=== PATIENT | female | born 1975 | race Caucasian/White ===

== ENCOUNTER → 2019-07-24 15:03 | Outpatient (CLI) | payer OTHER, SELFPAY ==
--- NOTE | ~2019-07-24 | MM_ITS ---
EXAMINATION: MM screening jaya BI w tino HISTORY: Screening mammogram TECHNIQUE: Craniocaudal and mediolateral oblique 3-D tomosynthesis images were obtained and synthetic 2-D images were generated. CAD analysis was submitted and interpreted. COMPARISON: No prior mammogram is available for comparison at this institution. BREAST PARENCHYMAL COMPOSITION: The breasts are almost entirely fatty. FINDINGS: There is no evidence of suspicious mass, calcification, or architectural distortion to sugg est malignancy in either breast. There has been no suspicious interval change. IMPRESSION: 1. No mammographic evidence of malignancy. 2. Recommend routine screening mammography in one year. BI-RADS Category 1: Negative Reviewed, dictated and finalized at location A. DCAST TECHNICIAN
== END ==
PROVIDERS: PCP Family Medicine; Visit Provider Nurse Practitioner
DX: Z12.31 Encounter for screening mammogram for malignant neoplasm of breast (principal)
CPT/HCPCS: 77063; 77067

== ENCOUNTER 2020-05-16 08:49 | Outpatient (CLI) | payer OTHER, SELFPAY ==
[2020-05-16 09:06] LABS: Basophils Absolute Auto 0.04 K/mm3 (0.00-0.10); Basophils Percent Auto 0.9 % (0.0-1.0); Eosinophils Absolute Auto 0.15 K/mm3 (0.02-0.50); Eosinophils Percent Auto 3.5 % (1.0-6.0); Hematocrit 39.9 % (35.0-49.0); Immature Granulocyte Absolute 0.02 K/mm3 (0.00-0.00); Immature Granulocyte Percent A 0.5 % (0.0-0.0); Lymphocytes Absolute Auto 0.96 K/mm3 (1.10-4.50); Lymphocytes Percent Auto 22.2 % (18.0-42.0); Mean Corpuscular HGB Conc 32.6 g/dL (32.0-36.0); Mean Corpuscular Hemoglobin 28.5 pg (27.0-31.0); Mean Corpuscular Volume 87.5 fL (78.0-102.0); Mean Platelet Volume 9.4 fl (9.2-11.8); Monocytes Absolute Auto 0.27 K/mm3 (0.10-0.90); Monocytes Percent Auto 6.3 % (2.0-11.0); Neutrophils Absolute Auto 2.9 K/mm3 (1.7-7.2); Neutrophils Percent Auto 66.6 % (50.0-70.0); Platelet Count Result 203 K/mm3 (150-420); Red Blood Count 4.56 M/mm3 (4.20-5.40); Red Cell Distribution Width 12.7 % (11.6-14.4); White Blood Count 4.3 K/mm3 (4.8-10.8)
[2020-05-16 09:54] LABS: Alanine Aminotransferase 19 U/L (14-59); Albumin Level 4.2 g/dL (3.4-5.0); Alkaline Phosphatase 74 U/L (46-116); Anion Gap 8 mmol/L (8-16); Aspartate Amino Transferase 11 U/L (15-37); Bilirubin,Total 0.7 mg/dL (0.00-1.00); Blood Urea Nitrogen 14 mg/dL (7-18); Calcium 9.3 mg/dL (8.5-10.1); Carbon Dioxide 28 mmol/L (21-32); Chloride 106 mmol/L (98-108); Cholesterol 199 mg/dL (0-200); Estimated Glomerular Filt Rate > 60; Glucose 86 mg/dL (70-99); HDL Direct 68 mg/dL (40-60); LDL Cholesterol Calculated 121 mg/dL (<130); Osmolality Calculated 293 mOsm/kg (285-295); Potassium 4.7 mmol/L (3.5-5.1); Sodium 142 mmol/L (136-145); Thyroid Stimulating Hormone 2.27 uIU/mL (0.36-3.74); Total Protein 7.4 g/dL (6.4-8.2); Triglycerides 50 mg/dL (0-150)
[2020-05-21 11:17] LABS: Vitamin D 25 Hydroxy 63 ng/mL (30-100)
== END 2020-05-16 08:50 | disposition home or self-care (01) ==
PROVIDERS: PCP Family Medicine; Visit Provider Family Medicine
DX: E55.9 Vitamin D deficiency, unspecified (principal); I10 Essential (primary) hypertension
CPT/HCPCS: 36415; 80053; 80061; 82306; 84443; 85025

== ENCOUNTER → 2020-10-21 13:43 | Outpatient (CLI) | payer OTHER, SELFPAY ==
--- NOTE | ~2020-10-21 | MM_ITS ---
EXAMINATION: MM screening [facility] BI w tino HISTORY: Screening mammogram TECHNIQUE: Craniocaudal and mediolateral oblique 3-D tomosynthesis images were obtained and synthetic 2-D images were generated. CAD analysis was submitted and interpreted. COMPARISON: 07/24/2019, 07/18/2018, 07/01/2017 BREAST PARENCHYMAL COMPOSITION: There are scattered areas of fibroglandular density. FINDINGS: There is no evidence of suspicious mass, calcification, or architectural distortion to sugg est malignancy in either breast. There has been no suspicious interval change. IMPRESSION: 1. No mammographic evidence of malignancy. 2. Recommend routine screening mammography in one year. BI-RADS Category 1: Negative Reviewed, dictated and finalized at location A.
== END ==
PROVIDERS: Visit Provider Nurse Practitioner
DX: Z12.31 Encounter for screening mammogram for malignant neoplasm of breast (principal)
CPT/HCPCS: 77063; 77067

== ENCOUNTER 2021-08-26 08:31 | Outpatient (CLI) | payer OTHER, SELFPAY ==
[2021-08-26 08:44] LABS: Basophils Absolute Auto 0.07 K/mm3 (0.00-0.10); Basophils Percent Auto 1.2 % (0.0-1.0); Eosinophils Absolute Auto 0.16 K/mm3 (0.02-0.50); Eosinophils Percent Auto 2.8 % (1.0-6.0); Hematocrit 41.7 % (35.0-49.0); Hemoglobin 13.8 g/dL (12.0-15.0); Immature Granulocyte Absolute 0.02 K/mm3 (0.00-0.00); Immature Granulocyte Percent A 0.3 % (0.0-0.0); Lymphocytes Absolute Auto 1.34 K/mm3 (1.10-4.50); Lymphocytes Percent Auto 23.4 % (18.0-42.0); Mean Corpuscular HGB Conc 33.1 g/dL (32.0-36.0); Mean Corpuscular Hemoglobin 30.4 pg (27.0-31.0); Mean Corpuscular Volume 91.9 fL (78.0-102.0); Mean Platelet Volume 9.3 fl (9.2-11.8); Monocytes Absolute Auto 0.45 K/mm3 (0.10-0.90); Monocytes Percent Auto 7.9 % (2.0-11.0); Neutrophils Absolute Auto 3.7 K/mm3 (1.7-7.2); Neutrophils Percent Auto 64.4 % (50.0-70.0); Platelet Count Result 250 K/mm3 (150-420); Red Blood Count 4.54 M/mm3 (4.20-5.40); Red Cell Distribution Width 12.1 % (11.6-14.4); White Blood Count 5.7 K/mm3 (4.8-10.8)
[2021-08-26 09:35] LABS: Creatinine Urine 217.16 mg/dL (40-278); MALB Creatinine Ratio 5.9 mg/g (0-30); Microalbumin Urine Random < 13.0 mg/L
[2021-08-26 09:51] LABS: Alanine Aminotransferase 23 U/L (14-59); Albumin Level 3.9 g/dL (3.4-5.0); Alkaline Phosphatase 72 U/L (46-116); Anion Gap 9 mmol/L (8-16); Aspartate Amino Transferase 17 U/L (15-37); Bilirubin,Total 0.5 mg/dL (0.00-1.00); Blood Urea Nitrogen 11 mg/dL (7-18); Calcium 8.6 mg/dL (8.5-10.1); Carbon Dioxide 30 mmol/L (21-32); Chloride 102 mmol/L (98-108); Estimated Glomerular Filt Rate > 60; Glucose 87 mg/dL (70-99); Osmolality Calculated 290 mOsm/kg (285-295); Potassium 4.2 mmol/L (3.5-5.1); Sodium 141 mmol/L (136-145); Thyroid Stimulating Hormone 1.99 uIU/mL (0.36-3.74); Total Protein 6.9 g/dL (6.4-8.2)
[2021-08-26 11:19] LABS: Cholesterol 186 mg/dL (0-200); HDL Direct 66 mg/dL (40-60); LDL Cholesterol Calculated 113 mg/dL (<130); Triglycerides 33 mg/dL (0-150)
[2021-08-29 13:49] LABS: Vitamin D 25 Hydroxy 50 ng/mL (30-100)
== END 2021-08-26 08:32 | disposition home or self-care (01) ==
LOC: CHSLAB 08:35
PROVIDERS: PCP Family Medicine; Visit Provider Nurse Practitioner
DX: E55.9 Vitamin D deficiency, unspecified (principal); I10 Essential (primary) hypertension
CPT/HCPCS: 36415; 80053; 80061; 82043; 82306; 84443; 85025

== ENCOUNTER → 2022-02-10 15:41 | Outpatient (CLI) | payer OTHER, SELFPAY ==
--- NOTE | ~2022-02-10 | MM_ITS ---
EXAMINATION: MM screening [facility] BI w tino HISTORY: Screening mammogram TECHNIQUE: Craniocaudal and mediolateral oblique 3-D tomosynthesis images were obtained and synthetic 2-D images were generated. CAD analysis was submitted and interpreted. COMPARISON: 10/21/2020, 07/24/2019, 07/18/2018 BREAST PARENCHYMAL COMPOSITION: There are scattered areas of fibroglandular density. FINDINGS: RIGHT BREAST: There is no suspicious mass, calcification, or architectural distortion to suggest sadiq gnancy. There has been no significant interval change. LEFT BREAST: There is a possible low-density mass in the posterior third of inner breast approximatel y 13.5 cm from the nipple. IMPRESSION: 1. Possible left breast mass. 2. Additional mammographic views and possible breast ultrasound are recommended. BI-RADS Category 0: Incomplete: Needs additional imaging evaluation. Reviewed, dictated and finalized at location A. IMPRESSION: 1. Possible left breast mass. 2. Additional mammographic views and possible breast ultrasound are recommended . BI-RADS Category 0: Incomplete: Needs additional imaging evaluation.
== END ==
PROVIDERS: PCP Family Medicine; Visit Provider Nurse Practitioner
DX: Z12.31 Encounter for screening mammogram for malignant neoplasm of breast (principal); R92.8 Other abnormal and inconclusive findings on diagnostic imaging of breast
CPT/HCPCS: 77063; 77067

== ENCOUNTER → 2022-03-02 09:16 | Outpatient (CLI) | payer OTHER, SELFPAY ==
--- NOTE | ~2022-03-02 | MMUS_ITS ---
EXAMINATION: MM diagnostic jaya LT w tino, US breast LT limited HISTORY: Left breast mass on screening mammogram TECHNIQUE: Additional 3-D tomosynthesis images of the left breast were performed and synthetic 2-D im ages were generated. CAD analysis was submitted and interpreted. High resolution limited left breast ultrasound was performed. COMPARISON: 02/10/2022, 10/21/2020, 07/24/2019 FINDINGS: MAMMOGRAPHIC FINDINGS: There is a return to baseline fibroglandular appearance with spot compression of the left breast in t he area questioned on screening mammogram. ULTRASOUND: There is no evidence of focal abnormal solid or cystic mass in the vicinity of the mammographic findi ng in question. IMPRESSION: 1. No mammographic or sonographic evidence of malignancy. 2. Recommend routine screening mammography in one year. BI-RADS Category 1: Negative Reviewed, dictated and finalized at location A. IMPRESSION: 1. No mammographic or sonographic evidence of malignancy. 2. Recommend routine screening mammography in one year. BI-RADS Category 1: Negative
== END ==
PROVIDERS: PCP Obstetrics & Gynecology Gynecology; Visit Provider Obstetrics & Gynecology Gynecology
DX: R92.8 Other abnormal and inconclusive findings on diagnostic imaging of breast (principal)
CPT/HCPCS: 76642; 77061; 77065; G0279

== ENCOUNTER 2023-01-06 08:06 | Day surgery (SDC) | payer OTHER, SELFPAY ==
--- NOTE | 2023-01-05 22:05 | P.HP_ITS ---
History of Present Illness History of Present Illness Consent: Risks, benefits, and alternatives have been discussed and questions answered. Patient agrees to proceed with procedure. Chief complaint: Neoplasm Screening Narrative: Jacobo Dumont is a 47 year old female who is referred for colon cancer screening. Review of Systems Review of Systems: All systems reviewed & are unremarkable except as noted in HPI and below [facility] Social History Social History Smoking status: Never smoker Alcohol intake: current Meds Home Medications and Allergies Home Medications Medication Instructions Recorded Confirmed Type losartan 100 1 tablet PO DAILY 11/10/22 01/06/23 History mg-hydrochlorothiazide 12.5 mg tablet omeprazole 40 mg capsule,delayed 40 mg PO DAILY 11/10/22 01/06/23 History release Allergies Allergy/AdvReac Type Severity Reaction Status Date / Time No Known Allergies Allergy Unknown Verified 01/06/23 08:47 Exam Const: General: alert Orientation/consciousness: patient oriented x3 Resp: Auscultation: clear to auscultation bilaterally Cardio: Rhythm: regular rhythm GI: GI Palp: Yes Soft to palpation and No Tenderness to palpation present (GI) Neuro: General: patient oriented x3 Assessment and Plan Assessment and plan (1) Colon cancer screening: Code(s): Z12.11 - Encounter for screening for malignant neoplasm of colon Status: Acute Assessment and Plan: Colonoscopy with possible biopsy or polypectomy or cautery or injection of substances.
--- NOTE | 2023-01-06 08:37 | P.PNAN_ITS ---
Anes - Initial Pre Proc Eval Procedure: Operation Date: 01/06/23 10:00 Proposed Procedures p Screening Colonoscopy - Oc Sullivan MD Date/Time: 01/06/23 08:37 Surgeon: Oc Sullivan MD Pre Op Diagnosis: Neoplasm Screening Patient Data Age: 47 Gender: F Height: 1.7 m Weight: 81.647 kg Allergies Allergy/AdvReac Type Severity Reaction Status Date / Time No Known Allergies Allergy Unknown Verified 01/06/23 08:47 Home Medications Medication Instructions Recorded Confirmed Type losartan 100 1 tablet PO DAILY 11/10/22 01/06/23 History mg-hydrochlorothiazide 12.5 mg tablet omeprazole 40 mg capsule,delayed 40 mg PO DAILY 11/10/22 01/06/23 History release Patient hx anesthesia problems: none Family hx anesthesia problems: none Results Review: All pre-operative results and documents have been reviewed as part of the pre- operative evaluation. [facility] Social History Social History Smoking status: Never smoker Alcohol intake: current Anes - Eval Final PreProcedure Day of Procedure 01/06/23 08:37 Patient weight: overweight Heart: regular rate and rhythm Lungs: clear to auscultation Airway: Mallampati scale class II Neurological: alert and oriented Last oral intake: >/= 8 hours ASA classification: II Emergent: no Anesthetic plan: proceed Anesthesia type and monitoring: general GIVS and standard monitoring Results Review: All pre-operative results and documents have been reviewed as part of the pre- operative evaluation. Informed Consent: The patient's anesthetic plan and its attendant risks and benefits were discussed with the patient/family/POA. Questions were solicited and answers provided to the satisfaction of the patient/family/POA.
[2023-01-06 08:48] VITALS: BP 129/77; PULSE 64; RESP 16; TEMP 36.8; O2SAT 99
[2023-01-06] MEDS: LACTATED RINGERS 1,000 ML 150 ML IV CONT (08:58)
[2023-01-06 09:58] VITALS: BP 106/68; PULSE 74; RESP 16; O2SAT 99
[2023-01-06 10:08] VITALS: BP 115/72; PULSE 76; RESP 18; O2SAT 100
[2023-01-06 10:18] VITALS: BP 108/62; PULSE 67; RESP 18; O2SAT 100
--- NOTE | 2023-01-06 10:55 | WPDANESPN ---
Anes - Prog Note Post-Op Date/Time: 01/06/23 10:55 Cardiovascular status: normal Respiratory status: normal Airway patency: baseline Mental status: baseline Post-Op hydration status: normal Vital Signs: Last Vital Signs Temp 36.8 C 01/06/23 08:48 Pulse 67 01/06/23 10:18 Resp 18 01/06/23 10:18 BP 108/62 01/06/23 10:18 Pulse Ox 100 01/06/23 10:18 O2 Del Method Room Air 01/06/23 10:18 Pain Score (VAS): 0 I/O: Intake & Output 01/05/23 01/06/23 01/06/23 23:59 07:59 15:59 Intake Total 250 Balance 250 Post-procedural complaints: none Patient Feedback: Patient satisfied with anesthetic care. Other Findings: Patient vital signs back to baseline. Patient denies nausea and vomiting. Patient's pain under control. Patient OK for discharge.
== END 2023-01-06 10:28 | disposition home or self-care (01) ==
PROVIDERS: PCP Family Medicine; Visit Provider Internal Medicine Gastroenterology
PROC: 0DJD8ZZ Inspection of Lower Intestinal Tract, Via Natural or Artificial Opening Endoscopic (ICD-10-PCS; CPT 45378; principal; 2023-01-06 10:00)
DX: Z12.11 Encounter for screening for malignant neoplasm of colon (principal); K57.30 Diverticulosis of large intestine without perforation or abscess without bleeding
CPT/HCPCS: 45378

== ENCOUNTER 2023-03-07 07:26 | Outpatient (CLI) | payer OTHER, SELFPAY ==
--- NOTE | ~2023-03-07 | MM_ITS ---
EXAMINATION: MM screening jaya BI w tino HISTORY: Screening mammogram TECHNIQUE: Craniocaudal and mediolateral oblique 3-D tomosynthesis images were obtained and synthetic 2-D images were generated. CAD analysis was submitted and interpreted. COMPARISON: 03/02/2022 diagnostic left mammogram and limited left breast ultrasound 02/10/2022, 10/21/2020, bilateral screening mammogram examinations BREAST PARENCHYMAL COMPOSITION: There are scattered areas of fibroglandular density. FINDINGS: There is no evidence of suspicious mass, calcification, or architectural distortion to sugg est malignancy in either breast. There has been no suspicious interval change. IMPRESSION: 1. No mammographic evidence of malignancy. 2. Recommend routine screening mammography in one year. BI-RADS Category 1: Negative Reviewed, dictated and finalized at location A.
== END 2023-03-07 07:27 | disposition home or self-care (01) ==
LOC: CHSIMG 07:27
PROVIDERS: PCP Family Medicine; Visit Provider Obstetrics & Gynecology Gynecology
DX: Z12.31 Encounter for screening mammogram for malignant neoplasm of breast (principal)
CPT/HCPCS: 77063; 77067

== ENCOUNTER 2023-07-05 08:09 | Emergency (ER) | payer OTHER, SELFPAY ==
[2023-07-05 08:14] VITALS: BP 152/96; PULSE 81; RESP 19; TEMP 36.7; O2SAT 98
--- NOTE | 2023-07-05 08:32 | ED.GENADULT ---
HPI - General Adult General Chief complaint: Head Injury Stated complaint: Fall/headache, neck pain Time Seen by Provider: 07/05/23 08:22 History of Present Illness HPI narrative: 48yo woman presents with headache and nausea onset this morning after a fall yesterday where she slipped on ice, struck back of head on the driveway. Has small occipital hematoma. no LOC. No anticoagulation. No vomiting, numbness, weakness, or visual disturbance. +neck and back stiffness. Related Data Home Medications Medication Instructions Recorded Confirmed losartan 100 1 tablet PO DAILY 11/10/22 07/05/23 mg-hydrochlorothiazide 12.5 mg tablet omeprazole 40 mg capsule,delayed 40 mg PO DAILY 11/10/22 07/05/23 release Allergies Allergy/AdvReac Type Severity Reaction Status Date / Time No Known Allergies Allergy Unknown Verified 07/05/23 08:18 Review of Systems Review of Systems: All systems reviewed & are unremarkable except as noted in HPI and below Constitutional: Constitutional: Denies fever(s) Eyes: Eyes: Denies change in vision ENT: Denies dysphagia and Denies vertigo Cardiovascular: Cardiovascular: Denies chest pain Respiratory: Respiratory: Denies dyspnea Gastrointestinal: Gastrointestinal: Denies abdominal pain PMFSH Social History Social History Smoking status: Never smoker Alcohol intake: current Exam Const: General: healthy appearing and no acute distress Nutritional Appearance: well nourished Orientation/consciousness: patient oriented x3 HENMT: Head: contusion Other: small superficial occipital hematoma Eyes: Conjunctivae: conjunctivae normal Pupils: Equal, round and reactive pupils present EOM: EOMs intact bilaterally Neck: Neck: no meningeal signs Other: supple Resp: Effort & Inspection: normal respiratory effort Cardio: Rate: regular rate GI: Inspection: non-distended Skin: General skin exam: normal color, no jaundice and no pallor Neuro: General: patient oriented x3, moves all extremities, no focal motor deficits and CN's II-XI intact bilaterally Speech: normal speech Gait exam (Neuro): Normal gait present Extrem: General: no clubbing, cyanosis or edema Course Vital Signs Vital signs: Vital Signs Temperature 36.7 C 07/05/23 08:14 Pulse Rate 81 07/05/23 08:14 Respiratory Rate 19 01/23/24 08:14 Blood Pressure 152/96 H 07/05/23 08:14 Pulse Oximetry 98 07/05/23 08:14 Oxygen Delivery Room Air 07/05/23 08:14 Temperature 36.7 C 07/05/23 08:14 Pulse Rate 81 07/05/23 08:14 Respiratory Rate 19 07/05/23 08:14 Blood Pressure 152/96 H 07/05/23 08:14 Pulse Oximetry 98 07/05/23 08:14 Oxygen Delivery Room Air 07/05/23 08:14 Medical Decision Making MDM Narrative Medical decision making narrative: ground level fall minor head trauma, no LOC DDx likely concussion, contusion, muscle spasm, no evidence of fracture or internal hemorrhage Vital Signs Vital Signs: Vital Signs Temperature 36.7 C 07/05/23 08:14 Pulse Rate 81 07/05/23 08:14 Respiratory Rate 19 07/05/23 08:14 Blood Pressure 152/96 H 07/05/23 08:14 Pulse Oximetry 98 07/05/23 08:14 Oxygen Delivery Room Air 07/05/23 08:14 Temperature 36.7 C 07/05/23 08:14 Pulse Rate 81 07/05/23 08:14 Respiratory Rate 19 07/05/23 08:14 Blood Pressure 152/96 H 07/05/23 08:14 Pulse Oximetry 98 07/05/23 08:14 Oxygen Delivery Room Air 07/05/23 08:14 Discharge Plan Discharge Clinical Impression: Concussion without loss of consciousness, initial encounter, Ground-level fall Traumatic hematoma of scalp Qualifiers: Encounter type: initial encounter Qualified Code(s): S00.03XA - Contusion of scalp, initial encounter Patient Disposition: Home, Self-Care Condition: Improved Instructions: Concussion (ED) Additional Instructions: A concussion is a mild he
[2023-07-05] MEDS: methocarbamoL 500 MG TABLET 1000 MG PO (08:42)
[2023-07-05] MEDS: ONDANSETRON HCL ODT 4 MG TABLET 8 MG PO (08:43)
== END 2023-07-05 08:52 | disposition home or self-care (01) ==
LOC: CHSED 08:45
PROVIDERS: Emergency Provider Emergency Medicine; PCP Family Medicine
DX: S06.0X0A Concussion without loss of consciousness, initial encounter (principal); S00.03XA Contusion of scalp, initial encounter; Z79.899 Other long term (current) drug therapy; W00.0XXA Fall on same level due to ice and snow, initial encounter
CPT/HCPCS: 99283; A9270

== ENCOUNTER → 2023-07-20 11:14 | Outpatient (CLI) | payer OTHER, SELFPAY ==
--- NOTE | ~2023-07-20 | MR_ITS ---
EXAMINATION: MR brain/brain stem wo con DATE: 07/20/2023 12:03 INDICATION: Concussion without loss of consciousness TECHNIQUE: Magnetic resonance imaging (MRI) of the brain and brainstem was performed without intraven ous contrast. Sequences included sagittal and axial T1-weighted SE, axial diffusion-weighted FS SE, a xial 3D SWAN, axial T2-weighted FLAIR, and axial T2-weighted FSE. Apparent diffusion coefficient (ADC ) maps were created. COMPARISON: None. FINDINGS: There are no areas of restricted diffusion to suggest acute infarction. No intracranial hemorrhage or abnormal intracranial mass lesion. There are no intraparenchymal signal abnormalities seen on the ot her pulse sequences. The ventricles are symmetric and normal in size. There are no abnormal extra-axi al fluid collections. Flow voids are seen in the cerebral arteries on the T2-weighted sequences consi stent with their expected patency. Visualized orbits and soft tissues are unremarkable. IMPRESSION: 1. Normal brain MR Reviewed, dictated and finalized at location A. AZZO WORKER HELPER IMPRESSION: 1. Normal brain MR
== END ==
PROVIDERS: PCP Family Medicine; Visit Provider Family Medicine
DX: S06.0X0D Concussion without loss of consciousness, subsequent encounter (principal); X58.XXXD Exposure to other specified factors, subsequent encounter
CPT/HCPCS: 70551

== ENCOUNTER 2023-07-25 13:58 | Outpatient (RCR) | payer OTHER, SELFPAY ==
--- NOTE | 2023-07-25 14:59 | PTOPEVAL1 ---
Assessment and note entered by Get Hobson Evaluation Information Assessment Status Evaluation Diagnosis post concussion syndrome Onset 07/04/23 Subjective Information Pt. reports she slipped on the ice on 07/04/23. She struck the back of her head. Started with pain in the head and neck and she began feeling dizziness and nausea the next day. She went to the ER that day. She reports she can only read for about 10 minutes. 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 She has recently returned to work, but does notice headaches with work related activities. 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 She enjoys watching her daughters sports but the lights at the gym give her headaches and dizziness. She reports that while driving she will have dizziness with turning her head. She reports that her goal is to reduce her dizziness. Reported Pain Level Pain Score 8,8: Self Report Assessment PT Clinical Summary Pt. is a 48 year old female who enters the clinic due to developed dizziness after a fall resulting in concussion. While pt. has numerous post concussion symptoms, she did present with positive findings for left sided BPPV on this date. Pt. responds well to Federico Maneuver with no noted nystagmus following the 3rd rep of the Federico. Continued skilled PT is indicated in order to improve symptoms of dizziness and transition into Hole 19 and Bizo activities for desensitization to difficult head and eye movements. Consider transitioning treatment to address neck pain consistent with whiplash syndrome. Plan of Care Interventions Electrical Stimulation,Hot Pack/Cold Pack,Manual Therapy,Patient/Caregiver Educati,Therapeutic Activities,Therapeutic Exercise Other Interventions cannalith repositioning PT Services Indicated Yes Treatment Frequency and 1x/week x 6 visits Duration These treatments will address the objective and functional deficits as defined above. The patient will be advanced safely and appropriately in order for the patient to progress towards his/her prior level of function. Additional exercises will be introduced and as well as a comprehensive home exercise program upon discharge, if needed, ?to ensure carryover of functional gains achieved in the clinic. This treatment plan has been reviewed and agreement upon by the patient.
--- NOTE | 2023-07-25 15:03 | OPREHPOC ---
Outpatient Therapy Plan of Care This is a Multidisciplinary Plan of Care that may contain components documented by all disciplines (PT, OT, and ST.) PT Problem 1 PT Problem #1 Knowledge Deficit PT Goal 1 Goal Independent with performance of home Federico Maneuver. Target Visit 2 PT Problem 2 PT Problem #2 Impaired Vestibular Syste PT Goal 1 Goal Pt. will present with less than 20% limitation on the DHI. Target Visit 3 PT Goal 2 Goal Pt. will report no episodes of dizziness over a 1 week period. Target Visit 3 PT Problem 3 PT Problem #3 Impaired Range of Motion PT Goal 1 Goal Pt. will demonstrate no restriction in lateral flexion (45 degrees bilateral), and cervical rotation (85 degrees bilateral) Target Visit 6
--- NOTE | 2023-08-25 16:50 | OPREHPOC ---
Outpatient Therapy Plan of Care This is a Multidisciplinary Plan of Care that may contain components documented by all disciplines (PT, OT, and ST.) PT Problem 1 PT Problem #1 Knowledge Deficit PT Goal 1 Goal Independent with performance of home Federico Maneuver. Target Visit 2 Progress Met PT Problem 2 PT Problem #2 Impaired Vestibular Syste PT Goal 1 Goal Pt. will present with less than 20% limitation on the DHI. Target Visit 3 Progress Partially Met PT Goal 2 Goal Pt. will report no episodes of dizziness over a 1 week period. Target Visit 3 Progress Met PT Problem 3 PT Problem #3 Impaired Range of Motion PT Goal 1 Goal Pt. will demonstrate no restriction in lateral flexion (45 degrees bilateral), and cervical rotation (85 degrees bilateral) Target Visit 6 Progress Met
--- NOTE | 2023-08-25 16:51 | PTOPDC ---
Assessment and note entered by JT File, PT Evaluation Information Assessment Status Discharge Diagnosis post concussion syndrome Onset 07/04/23 Subjective Information patient reports she is better. she reports she tolerates light better, noise better, and being around people better. she reports she has improved in her driving, and only gets slight symptoms with exit/on ramps and looking in the rearview mirror. she reports she has more energy, and tolerates being on the computer longer. she reports she no longer gets dizzy, but does have a few headaches now and then. patient reports she believes she is ready to DC therapy. Reported Pain Level Pain Score 0,0: Self Report Assessment PT Clinical Summary mrs. england presents to skilled PT services for her 4th skilled PT visit. she presents today with having met nearly all goals for skilled PT, except DHI score. however, her DHI score is right at the cutoff for her goal. she no longer has dizziness according to her subjective reports, and has only head aches from time to time. patient was given updated instructions to increase activity at home, and how to progress her balance exercises. she will be DC'd from skilled PT today. Plan of Care PT Services Indicated Yes
--- NOTE | 2023-11-30 11:41 | PCPTNOTE ---
Mrs. Dumont attended a total of 4 treatment sessions. She contacted the clinic and stated that she was feeling much better and symptoms continue to decrease. She request discharge at this time. Thank you for the referral of this patient. Get Hobson, MPT
== END 2023-08-25 20:00 | disposition home or self-care (01) ==
LOC: CHSPT 13:58
PROVIDERS: Visit Provider Family Medicine
DX: M54.2 Cervicalgia (principal); F07.81 Postconcussional syndrome
CPT/HCPCS: 95992; 97014; 97110; 97112; 97161; 97530; G0283

== ENCOUNTER 2024-03-08 07:20 | Outpatient (CLI) | payer OTHER, SELFPAY ==
--- NOTE | ~2024-03-08 | MM_ITS ---
EXAMINATION: MM screening jaya BI w tino HISTORY: Screening TECHNIQUE: Craniocaudal and mediolateral oblique 3-D tomosynthesis images were obtained and synthetic 2-D images were generated. CAD analysis was submitted and interpreted. COMPARISON: Comparison to multiple prior studies sequentially, with oldest reviewed study dated 10/2018. BREAST PARENCHYMAL COMPOSITION: Not dense: There are scattered areas of fibroglandular density. FINDINGS: There is no evidence of suspicious mass, calcification, or architectural distortion to sugg est malignancy in either breast. There has been no suspicious interval change. IMPRESSION: 1. No mammographic evidence of malignancy. 2. Recommend routine screening mammography in one year. BI-RADS Category 1: Negative Reviewed, dictated and finalized at location B.
== END 2024-03-08 07:21 | disposition home or self-care (01) ==
PROVIDERS: PCP Family Medicine; Visit Provider Nurse Practitioner
DX: Z12.31 Encounter for screening mammogram for malignant neoplasm of breast (principal)
CPT/HCPCS: 77063; 77067

== ENCOUNTER 2024-05-22 16:46 | Outpatient (RCR) | payer OTHER, SELFPAY ==
--- NOTE | 2024-05-31 14:22 | OPREHPOC ---
Outpatient Therapy Plan of Care This is a Multidisciplinary Plan of Care that may contain components documented by all disciplines (PT, OT, and ST.) PT Problem 1 PT Problem #1 Knowledge Deficit PT Goal 1 Goal / Goal Update 1. independent and compliant with HEP Target Visit 6 PT Problem 2 PT Problem #2 Pain PT Goal 1 Goal / Goal Update 1. patient to report 3/10 or less neck pain at worst 2. patient to report 50% or greater reduction of headache frequency and severity. Target Visit 12 PT Problem 3 PT Problem #3 Impaired Range of Motion PT Goal 1 Goal / Goal Update 1. 45 degrees active cervical flexion and extension or better 2. 40 degrees active cervical side bending or better Target Visit 12 PT Problem 4 PT Problem #4 Impaired Strength PT Goal 1 Goal / Goal Update 1. 4+/5 or better deep neck flexor strength Target Visit 12 PT Problem 5 PT Problem #5 Impaired Functional Mobility PT Goal 1 Goal / Goal Update 1. patient to display no tenderness with palpation of the sub-occipitals/cervical paraspinals 2. patient to return to normal driving habits throughout the day and night 3. patient to be able to shop without increased headaches to improve her quality of life Target Visit 12
--- NOTE | 2024-05-31 14:22 | PTOPEVAL1 ---
Assessment and note entered by JT File, PT Evaluation Information Assessment Status Evaluation Diagnosis chronic post traumatic headache Other ICD-10 Condition Codes ( G44.329 PT) Onset 05/17/24 Subjective Information patient reports she is still not 100% better. she reports she was getting better over the summer, but when going back to work her symptoms began to return. she reports looking L and R repetitively will make her sick. she reports the back of her neck hurts. she reports she has seen a chiropractor who worked on the neck which helped some. 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 she reports she has to frequently look from L to R and back looking and listening to each child in her class. she reports she has sensitivity to light and sound . she reports she head dry needling has helped others and she wants to try this in therapy. she reports all of this began when she slipped on the ice last year and hit her head causing a concussion. she reports she does have headaches daily. she has done therapy before in the past which helped, but she reports her symptoms are now back. Reported Pain Level Pain Score 5,5: Self Report Assessment PT Clinical Summary mrs. england is a 49 yo woman who presents to skilled PT services for evaluation and treatment of headaches and neck pain following a concussion. she has been through a bout of skilled PT in the past which helped, but her symptoms are now worsening again. she displays deficits in cervical core strength, she has headaches, and mm tightness in the neck. she would benefit from continued skilled PT to address her cervical spine and post-concussive issues to improve her quality of life and return to prior level functional activity performance. Plan of Care Interventions Electrical Stimulation,Hot Pack/Cold Pack,Manual Therapy,Mechanical Traction,Neuro Re-education, Patient/Caregiver Education,Therapeutic Activities ,Therapeutic Exercise,Other Other Interventions dry needling PT Services Indicated Yes Treatment Frequency and 2x weekly for 12 visits Duration These treatments will address the objective and functional deficits as defined above. The patient will be advanced safely and appropriately in order for the patient to progress towards his/her prior level of function. Additional exercises will be introduced and as well as a comprehensive home exercise program upon discharge, if needed, ?to ensure carryover of functional gains achieved in the clinic. This treatment plan has been reviewed and agreement upon by the patient.
--- NOTE | 2024-08-01 16:54 | OPREHPOC ---
Outpatient Therapy Plan of Care This is a Multidisciplinary Plan of Care that may contain components documented by all disciplines (PT, OT, and ST.) PT Problem 1 PT Problem #1 Knowledge Deficit PT Goal 1 Goal / Goal Update 1. independent and compliant with HEP Target Visit 6 Progress Met PT Problem 2 PT Problem #2 Pain PT Goal 1 Goal / Goal Update 1. patient to report 3/10 or less neck pain at worst 2. patient to report 50% or greater reduction of headache frequency and severity. Target Visit 12 Progress Met PT Problem 3 PT Problem #3 Impaired Range of Motion PT Goal 1 Goal / Goal Update 1. 45 degrees active cervical flexion and extension or better. met 2. 40 degrees active cervical side bending or better. partially met Target Visit 12 Progress Partially Met PT Problem 4 PT Problem #4 Impaired Strength PT Goal 1 Goal / Goal Update 1. 4+/5 or better deep neck flexor strength Target Visit 12 Progress Met PT Problem 5 PT Problem #5 Impaired Functional Mobility PT Goal 1 Goal / Goal Update 1. patient to display no tenderness with palpation of the sub-occipitals/cervical paraspinals. partially met 2. patient to return to normal driving habits throughout the day and night. not met 3. patient to be able to shop without increased headaches to improve her quality of life. not met Target Visit 12 Progress Not Met
--- NOTE | 2024-08-01 16:55 | PTOPDC ---
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 she reports she did not get dizzy one time. 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 however, driving still causes her to have dizziness. she reports she has a normal slight headache from driving. Reported Pain Level Pain Score 2,0: Self Report Assessment PT Clinical Summary mrs. england presents to skilled PT for her 10th skilled PT visit for neck pain, headaches, and dizziness. she has met and partially met several goals as of this date. although her dizziness symptoms remain with driving, she displays improvement managing work and reading. she is compliant with her home gaze stabilization and habituation exercises. she will DC skilled PT to independent [facility] Plan of Care PT Services Indicated Yes
== END 2024-08-01 17:06 | disposition home or self-care (01) ==
LOC: CHSPT 16:46
PROVIDERS: Visit Provider Clinical Nurse Specialist Adult Health
DX: G44.329 Chronic post-traumatic headache, not intractable (principal)
CPT/HCPCS: 97014; 97110; 97112; 97140; 97161; G0283

== ENCOUNTER 2024-09-13 15:34 | Outpatient (CLI) | payer OTHER, SELFPAY ==
--- NOTE | ~2024-09-13 | US_ITS ---
Pelvic ultrasound. Clinical History: Pelvic pain Technique: Realtime transabdominal and transvaginal scanning of the pelvis was performed. Color flow Doppler and Doppler spectral analysis were performed. Findings: The uterus is anteverted. The endometrial stripe has a thickness of 5 mm. Left-sided uteri ne fibroid measures 4.5 x 5.2 x 4.5 cm. The right ovary measures 4.2 x 1.5 x 3.2 cm. No significant right ovarian or adnexal mass is seen. The left ovary measures 1.6 x 2.0 x 1.1 cm. No significant left ovarian or adnexal mass is seen. There is no evidence of free fluid in the cul de sac. Impression: Uterine fibroid, as detailed above. Reviewed, dictated and finalized at location . Impression: Uterine fibroid, as detailed above.
== END 2024-09-13 15:35 | disposition home or self-care (01) ==
LOC: MICIMG 15:36
PROVIDERS: PCP Nurse Practitioner; Visit Provider Nurse Practitioner
DX: D25.9 Leiomyoma of uterus, unspecified (principal)
CPT/HCPCS: 76830; 76856

== ENCOUNTER 2025-01-28 20:15 | Emergency (ER) | payer OTHER, SELFPAY ==
[2025-01-28] VITALS (11 sets, daily range): BP systolic 91–133; BP diastolic 62–77; PULSE 75–100; RESP 16–24; TEMP 36.1–36.5; O2SAT 95–100
--- NOTE | ~2025-01-28 | XR_ITS ---
EXAMINATION: XR chest 1V portable 01/28/2025 21:05 INDICATION: Shortness of breath PROCEDURE: AP portable chest COMPARISON: No prior studies for comparison. FINDINGS: The lungs are clear. The cardiomediastinal silhouette is within normal limits. There are no pleural effusions. There is no pneumothorax suspected. IMPRESSION: 1: NO ACUTE CARDIOPULMONARY DISEASE. Reviewed, dictated and finalized at location A.
[2025-01-28] MEDS: EPINEPHrine HCL INJ 1 MG/ML AMPUL SUB-Q ×2 (20:15→20:20)
--- OUTSIDE RECORDS SUMMARY | 2025-01-28 20:17 | XMS_ITS | Clinical Summary ---
Author Organization [facility] Address [address] [place] [address] Phone Care Team Providers Care Econometrician Name Role Phone Pj Wharton MD Primary Care Provider [phone] Ailyn Chambers APRN, SENIOR INFORMATICA DEVELOPER Unavailable [phone] Allergies No known active allergies Medications Multiple Vitamin (MULTIVITAMIN PO) Take by mouth. Active omeprazole (PriLOSEC) 40 MG CAPSULE DELAYED RELEASE Take 40 mg by mouth daily. Active fluticasone (FLONASE) 50 MCG/ACT Suspension 1 [place] by Nasal route daily. Use in each nostril as directed. Active losartan-hydroc hlorothiazide (HYZAAR) 100-12.5 MG Tablet Take 1 Tablet by mouth daily. Active Turmeric (QC TUMERIC COMPLEX PO) Take by mouth. Active [place]-3 Fatty Acids (FISH OIL PO) Take by mouth. Active Calcium Carbonate (CALCIUM 600 PO) Take by mouth. Active Cholecalciferol (VITAMIN D-3 PO) Take by mouth. Active Cyanocobalamin (B-12 PO) Take by mouth. Active Rizatriptan Benzoate 5 MG TABLET DISPERSIBLEIndi cations:Migrain e Take 1 Tablet by mouth once as needed for Migraine or Headaches. Indications: Migraine Headache 10 Tablet 2 08/16/19 25 Active amitriptyline (ELAVIL) 10 MG TabletIndicatio ns:Chronic post-traumatic headache, not intractable TAKE ONE (1) TABLET BY MOUTH NIGHTLY. 90 Tablet 07/29/20 25 Active amitriptyline (ELAVIL) 10 MG TabletIndicatio ns:Migraine Take 1 Tablet by mouth nightly. Indications: Migraine Headache 30 Tablet 09/06/19 25 025 Discontinued Active Problems No known active problems Encounters Date Type Department Care Team Description 01/08/2025 Refill [facility] [address] [place] [address] Ailyn Chambers APRN, SENIOR INFORMATICA DEVELOPER Medication Refill 11/20/2024 10:00 AM CDT Office Visit [facility] [address] [place] [address] Ailyn Chambers APRN, SENIOR INFORMATICA DEVELOPER Chronic post-traumatic headache, not intractable (Primary Dx); Primary hypertension Discharge Disposition: Discharged to home or Selfcare 11/20/2024 Travel from Last 3 Months Family History Medical History Relation Name Comments Hypertension Father Hypertension Mother Osteoporosis Mother Relation Name Status Comments Father Alive Mother Alive Social History Tobacco Use Types Packs/Day Years Used Date Smoking Tobacco: Never Smokeless Tobacco: Never Tobacco Cessation:Counseling Given: Not Answered Alcohol Use Standard Drinks/Week Comments Yes 0 (1 standard drink = 0.6 oz pur e alcohol) occasional Sexually Active Control Partners Comments Yes Surgical Male Comments Unknown Sex and Gender Information Value Date Recorded Sex Assigned at Not on file Legal Sex Female 3:44 PM CDT Gender Identity Not on file Sexual Orientation Not on file Last Filed Vital Signs Vital Sign Reading Time Taken Comments Blood Pressure 138/90 08/15/2024 3:37 PM HAND CLOTH EXAMINER Pulse 76 08/15/2024 3:37 PM HAND CLOTH EXAMINER Temperature 36.6 C (97.8 F) 08/15/2024 3:37 PM HAND CLOTH EXAMINER Respiratory Rate 17 11/20/2024 9:58 AM CDT Oxygen Saturation 100% 08/15/2024 3:37 PM HAND CLOTH EXAMINER Inhaled Oxygen Concentration - - Weight 89.4 kg (197 lb) 11/20/2024 9:58 AM CDT Height 170.2 cm (5' 7) 11/20/2024 9:58 AM CDT Body Mass Index 30.85 11/20/2024 9:58 AM CDT Plan of Treatment Upcoming Encounters Date Type Department Care Team (Late st Contact Info) Description 03/01/2025 4:00 PM CDT Office Visit [facility] - [facility] [address] [place] [address] Ailyn Chambers, WINDOW GLAZIER HELPER, SENIOR INFORMATICA DEVELOPER [address] [place] [address] Health Maintenance Due Date Last Done Comments Hepatitis C Virus (HCV) Screening 1977 Mammogram 1977 HPV/Cotest 2007 Discussion re Starting/Frequency of Mammograms 2017 Cervical Cancer Screening (CCS) 06/10/2020 Pap Smear 06/10/2020 06/10/2017 Cologuard 2022 Colonoscopy 2022 Colorectal Cancer Screening 2022 Immunochemical Fecal Occult Blood 2022 SARS-COV-2 Immunization ( season) 2024 04/29/2021, 08/19/2020, 07/17/2020 Influenza Immunization (#1) 02/11/202503/13, 03/21/2024, 04/18/2023, Additional history exists Respiratory Syncytial Virus (RSV) Immunization (Adult) (1 - 1-dose 75+ series) 2052 Hepatitis B Immunization Completed 005, 04/28/2004, 03/16/2004 TdaP Immunization Completed 02/25/2016 Human Papillomavirus (HPV) Immunization Aged Out No longer eligible based on patient's age to complete this topic Meningococcal Immunization (ACWY) Aged Out No longer eligible based on patient's age to complete this topic Pneumococcal Immunization Combined Aged Out No longer eligible based on patient's age to complete this topic Rotavirus Immunization Aged Out No lo nger eligible based on patient's age to complete this topic Insurance [facility] Care Teams Econometrician Relationship Specialty Start Date End Date Pj Wharton MD [address] [place] [address] PCP - General Pediatrics 11/25/23 Ailyn Chambers, WINDOW GLAZIER HELPER, SENIOR INFORMATICA DEVELOPER [address] [place] [address] Nurse Practitioner Advanced Practice Nurse 02/01/24
--- OUTSIDE RECORDS SUMMARY | 2025-01-28 20:18 | XMS_ITS | Clinical Summary ---
Author Organization [facility] Address [facility] [place] [address] Care Team Providers Care Separations Scientist Name Role Phone Unavailable Primary Care Provider Unavailabl e Social History Tobacco Use Types Packs/Day Years Used Date Smoking Tobacco: Never Assessed Comments Unknown Sex and Gender Information Value Date Recorded Sex Assigned at Not on file Legal Sex Female 7:17 PM CDT Gender Identity Not on file Sexual Orientation Not on file Plan of Treatment Health Maintenance Due Date Last Done Comments Cervical Cancer Screening Pa p Smear (Age 30 to 64) Every 3 Years 1977 Colorectal Cancer Screening Colonoscopy (10 Years) 1977 Annual Physical 1980 Hepatitis C 1995 DTaP, Tdap and Td Vaccines ( 1 - Tdap) 1996 Hepatitis B Vaccines (1 of 3 - 19+ 3-dose series) 1996 Cervical Cancer Screening Pa p with HPV Testing (Age 30 to 64) Every 5 Years 2007 Cervical Cancer Screening with HPV 2007 Mammogram Screening 2017 COVID-19 Vaccine (2023-2 5 season) 2024 Meningococcal B Vaccine Aged Out No l onger eligible based on patient's age to complete this topic Meningococcal Vaccine Aged Out No carisa irving eligible based on patient's age to complete this topic Pneumococcal Vaccine: Pediat rics (0 to 5 Years) and At-Risk Patients (6 to 49 Years) Aged Out No longer eligible b ased on patient's age to complete this topic RSV Immunizations Under 20 Months Aged Out No longer eligible based on patient's age to complete this topic
--- OUTSIDE RECORDS SUMMARY | 2025-01-28 20:18 | XMS_ITS | Clinical Summary ---
Author Organization [facility] Address [address] [place] [address] Care Team Providers Care Electromechanical Assembler Name Role Phone Pj Wharton MD Primary Care Provide r Allergies No known active allergies Medications tacrolimus (PROTOPIC) 0.1 % ointmentIndica tions:Allergic contact dermatitis due to other agents Apply topically 2 (two) times a day to affected area next to eye 100 g 3 3 Active fluorouraciL (EFUDEX) 5 % creamIndicatio ns:Actinic keratosis Mix 50:50 with calcipotriene cream and apply to back of hands twice a day for 4-5 days as tolerated 40 g 1 5 Active calcipotriene (Dovonex) 0.005 % creamIndicatio ns:Plaque Psoriasis Mix 50:50 with efudex cream and apply to back of hands twice a day for 4-5 days as tolerated 60 g 1 5 Active Active Problems No known active problems Social History Tobacco Use Types Packs/Day Years Used Date Smoking Tobacco: Never Smokeless Tobacco: Never Tobacco Cessation:Counseling Given: Not Answered Comments Unknown Sex and Gender Information Value Date Recorded Sex Assigned at Not on file Legal Sex Female 2:37 PM HEAD ROSE GROWER Gender Identity Female 07/19/2022 1:41 PM HEAD ROSE GROWER Sexual Orientation Straight 07/19/2022 1: 41 PM HEAD ROSE GROWER Obstetrics History Last Filed Vital Signs Vital Sign Reading Time Taken Comments Blood Pressure 141/87 07/28/2022 9:25 AM HEAD ROSE GROWER Pulse 85 07/28/2022 9:25 AM HEAD ROSE GROWER Temperature - - Respiratory Rate - - Oxygen Saturation 100% 07/28/2022 9:25 AM HEAD ROSE GROWER Inhaled Oxygen Concentration - - Weight - - Height - - Body Mass Index - - Plan of Treatment Health Maintenance Due Date Last Done Comments Breast Cancer Screening-Mammogram 1977 Cervical Cancer Screening 1977 Colon Cancer Screening-Colonoscopy 1977 Depression Screening 1977 Hepatitis C Screening 1977 Regular Well Visit/Exam 18-64 1995 Covid-19 Vaccine ( season) 2024 04/29/2021, 08/19/2020, 07/17/2020 Influenza Vaccine (#1) 2025 , 03/24/2020, 03/26/2019, Additional history exists DTaP/Tdap/Td Vaccine (2 - Td or Tdap) 02/24/2026 02/25/2016 Hepatitis B Screening Completed 10/06/2004 , 04/28/2004, 03/16/2004 Pneumococcal vaccine <65 Aged Out No longer eligible based on patient's age to complete this topic Insurance [facility] CHOICE PLUS [facility] HMO/PPO Address: [facility] [address] [facility]PP[facility] Address: [id number] [place] [address] Care Teams Electromechanical Assembler Relationship Specialty Start Date End Date Pj Wharton MD [address] [place] [address] PCP - General Family Medicine 07/16/22
--- OUTSIDE RECORDS SUMMARY | 2025-01-28 20:18 | XMS_ITS | Clinical Summary ---
Author Organization [facility] Address [address] [place] [address] Care Team Providers Care Windows Software Engineer Name Role Phone Unavailable Primary Care Provider Unavailabl e Source Comments [facility],non-owned Affiliates and Associated Physician Practices is amultiple site organization consisting of ambulatory clinics and hospital sitesin [place], [place], [place] and [place]. This disclosure is being madepursuant to the Care Everywhere program and may not contain all information available regarding this patient. Last updated 18.[facility] Allergies No known active allergies Medications * Be aware that medications may not be up to date on this document. Alwaysverify current medications with the patient. amitriptyline (Elavil) 10 MG tablet Take 2 (two) tablets by mouth at bedtime 04/16/2024 Active losartan-hydroC HLOROthiazide (Hyzaar) 100-12.5 MG tablet Take 1 (one) tablet by mouth once daily Active omeprazole (PriLOSEC) 40 MG capsule Take 1 (one) capsule by mouth once daily Active Active Problems Problem Noted Date Diagnosed Date Macromastia 09/11/2024 Chronic bilateral thoracic back pain 09/11/2024 Family History Medical History Relation Name Comments Cancer - Breast Neg Hx Social History Tobacco Use Types Packs/Day Years Used Date Smoking Tobacco: Never Smokeless Tobacco: Never Tobacco Cessation:Counseling Given: Not Answered Alcohol Use Standard Drinks/Week Comments Yes 0 (1 standard drink = 0.6 oz pur e alcohol) weekends Comments Unknown Sex and Gender Information Value Date Recorded Sex Assigned at Female 06/22/2024 6:08 PM REGIONAL TRAINING MANAGER Legal Sex Female 5:34 AM REGIONAL TRAINING MANAGER Gender Identity Female 06/22/2024 6:08 PM REGIONAL TRAINING MANAGER Sexual Orientation Straight 06/22/2024 6: 08 PM REGIONAL TRAINING MANAGER Last Filed Vital Signs Vital Sign Reading Time Taken Comments Blood Pressure 127/88 09/04/2024 1:44 PM CDT Pulse 83 09/04/2024 1:44 PM CDT Temperature 37.1 C (98.7 F) 09/04/2024 1:44 PM CDT Respiratory Rate - - Oxygen Saturation 100% 09/04/2024 1:44 PM CDT Inhaled Oxygen Concentration - - Weight 85.7 kg (189 lb) 09/04/2024 1:44 PM CDT Height 170.2 cm (5' 7) 09/04/2024 1:44 PM CDT Body Mass Index 29.6 09/04/2024 1:44 PM CDT Plan of Treatment Health Maintenance Due Date Last Done Comments COLOGUARD (AGES 45-75) - COL ON CA SCREENING 1977 COLON MONITORING 1977 COLONOSCOPY - COLON CA SCREENING 1977 CT COLONOGRAPHY - COLON CA SCREENING 1977 Colorectal Cancer Screening 1977 FIT - COLON CA SCREENING 1977 FLEX SIG - COLON CA SCREENING 1977 LIPID TESTING 1977 MAMMOGRAM 1977 HIV SCREENING 1992 HEPATITIS C SCREENING 04/30/1995 DTAP/TDAP/TD VACCINES (1 - Tdap) 1996 HEPATITIS B VACCINE (1 of 3 - 19+ 3-dose series) 1996 PAP SMEAR 06/10/2020 06/10/2017 COVID-19 VACCINE (1 - 2023-2 5 season) 2024 DEPRESSION SCREENING 06/13/2024 SCREENING FOR DIABETES 09/04/2024 INFLUENZA VACCINE (#1) 2025 03/23/2024 ZOSTER VACCINE (1 of 2) 2027 HIB VACCINE Aged Out No longer eligi ble based on patient's age to complete this topic HPV VACCINE Aged Out No longer eligi ble based on patient's age to complete this topic MENINGOCOCCAL (Group B) VACC INE SHARED DECISION-MAKING Aged Out No longer eligibl e based on patient's age to complete this topic MENINGOCOCCAL GROUPS A/C/Y/W VACCINE Aged Out No longer eligible b ased on patient's age to complete this topic PNEUMOCOCCAL VACCINE Aged Out No long er eligible based on patient's age to complete this topic Insurance
--- OUTSIDE RECORDS SUMMARY | 2025-01-28 20:18 | XMS_ITS | Patient Health Record ---
Author Organization [facility] Address [address] [place], [place] [address] Care Team Providers Care Funeral Professional Name Role Phone KIRAN Butler Unavailable [phone] Reason For Referral No Information Plan Of Treatment No Information Insurance Providers Payer Name Payer Address Payer Phone Subscriber Number Group Number Insured Name Patient Relationship to Insured Coverage Start Date Coverage End Date [facility] [address] [address] [place] [address] [id number] ANDI IVAN Self - patient is the insured [place] / [place] [address] [place] [id number] EVERARDO IVAN II Spouse - patient is the spouse of the insured
[2025-01-28] MEDS: SODIUM CHLORIDE 0.9% IV 1,000 ML 999 ML IV CONT ×2 (20:20→21:52)
--- NOTE | 2025-01-28 20:28 | ED_ITS ---
HPI - Allergic Reaction General Chief complaint: Allergic Reaction Stated complaint: stung/allergic reaction Time Seen by Provider: 01/28/25 20:28 Source: patient and family Mode of arrival: ambulatory Limitations: no limitations History of Present Illness HPI narrative: patient is a 49-year-old female with allergic reaction to roughly 50 wasp or bees this evening. patient was mowing the yd and got into a patch of wasp or bees and was stung roughly 50 times per her encounter. She started to have difficulty swallowing and difficulty breathing with some swelling of her lips and near syncopal sensation. MD complaint: allergic reaction, hives and facial swelling Onset (ago): minute(s) ( Thirty) Exposure: insect bite ( wasp or bee) Symptoms: rash, itching, facial swelling, lip swelling, difficulty swallowing, difficulty breathing, tongue swelling, hoarseness, dizziness and nausea Severity: severe Treatment prior to arrival: benadryl ( 75 mg) Previous Allergic Reaction History: none Related Data Home Medications ?Medication ?Instructions ?Recorded ?Confirmed ?Last Taken ?Type losartan 100 1 tablet PO DAILY 11/10/22 07/05/23 Unknown History mg-hydrochlorothiazide 12.5 mg tablet omeprazole 40 mg capsule,delayed 40 mg PO DAILY 11/10/22 07/05/23 Unknown History release Allergies Allergy/AdvReac Type Severity Reaction Status Date / Time No Known Allergies Allergy Unknown Verified 07/05/23 08:18 Review of Systems 2 Review of Systems: All systems reviewed & are unremarkable except as noted in HPI and below Constitutional: Constitutional: Reports no additional constitutional complaints Eyes: Eyes: Reports no additional eye complaints ENT: Reports system reviewed and no additional complaints, except as documented Cardiovascular: Cardiovascular: Reports no additional cardiovascular complaints Respiratory: Respiratory: Reports no additional respiratory complaints Gastrointestinal: Gastrointestinal: Reports no additional gastrointestinal complaints Genitourinary: Genitourinary: Reports no additional female genitourinary complaints Musculoskeletal: Musculoskeletal: Reports no additional musculoskeletal complaints Integumentary/Breasts: Skin/Breast: Reports system reviewed and no additional complaints, except as docu Neurologic: Reports system reviewed and no additional complaints, except as documented Psychiatric: Psychiatric: Reports no additional psychiatric complaints Endocrine: Endocrine: Reports no additional endocrine complaints Hematologic/Lymphatic: Hematologic/Lymphatic: Reports no additional hematologic/lymphatic complaints Allergic/Immunologic: Allergic/Immunologic: Reports no additional allergic/immunologic complaints [facility] Social History Social History Smoking status: Never smoker Alcohol intake: current Exam 2 Const: General: healthy appearing Nutritional Appearance: well nourished Orientation/consciousness: patient oriented x3 HENMT: Head: normal to inspection Ears: external ears normal F miguel/Nose/Sinus: Normal external nose present Other: swollen tongue and lips Eyes: Conjunctivae: conjunctivae normal Pupils: Equal, round and reactive pupils present EOM: EOMs intact bilaterally Other: swollen bilateral eyelids Neck: Neck: normal visual inspection Chest: Chest palpation & inspection: normal inspection of the chest Resp: Effort & Inspection: abnormal respiratory effort, labored and tachypneic Auscultation: clear to auscultation bilaterally, no crackles and diminished lung sounds Cardio: Rate: regular rate Rhythm: regular rhythm Heart sounds: no murmurs GI: Inspection: non-distended GI Palp: Yes Soft to palpation and No Tenderness to palpation present (GI) Auscultation: normal bowel sounds : General: Yes bladder normal to palpation Back/Spine/Pelvis: Back: no CVA tenderness Skin: General skin exam: normal color Rashes: no rashes Wounds: no wounds Neuro: General: patient oriented x3, moves all extremities and no meningeal signs Extrem: General: normal to inspection Psych: Mental Status: mental status grossly normal Affect: normal affect Attitude: cooperative Course Vital Signs Vital signs: Vital Signs Temperature 36.1 C L 01/28/25 20:18 Pulse Rate 97 01/28/25 20:18 Respiratory Rate 18 01/28/25 20:18 Blood Pressure 91/62 L 01/28/25 20:18 Pulse Oximetry 98 01/28/25 20:18 Oxygen Delivery Nasal Cannula 01/28/25 20:18 Oxygen Flow Rate 2 01/28/25 20:18 Temperature 36.1 C L 01/28/25 20:18 Pulse Rate 86 01/28/25 21:18 Respiratory Rate 20 01/28/25 21:18 Blood Pressure 133/77 01/28/25 21:18 Pulse Oximetry 100 01/28/25 21:18 Oxygen Delivery Room Air 01/28/25 21:18 Oxygen Flow Rate 2 01/28/25 20:44 MDM - Allergic Reaction MDM Narrative Medical decision making narrative: patient is a 49-year-old female with allergic reaction to bees or wasps this evening. She was swelling and itching and difficulty breathing. Epinephrine. Steroids. IV fluids. Monitor. Lab Data Attestation: I reviewed the patient's lab results. 01/28/25 20:55 01/28/25 20:55 Labs: Lab Results 01/28/25 Range/Units 20:55 WBC 8.1 (4.8-10.8) K/mm3 RBC 4.02 L (4.20-5.40) M/mm3 Hgb 12.0 (12.0-15.0) g/dL Hct 35.7 (35.0-49.0) % MCV 88.8 (78.0-102.0) fL MCH 29.9 (27.0-31.0) pg MCHC 33.6 (32-36) g/dL RDW 12.9 (11.6-14.4) % Plt Count 303 (150-420) K/mm3 MPV 9.4 (9.2-11.8) fl Immature Gran % (Auto) 0.2 H (0.0-0.0) % Neut % (Auto) 62.0 (50.0-70.0) % Lymph % (Auto) 27.7 (18.0-42.0) % [place] % (Auto) 8.0 (2.0-11.0) % Eos % (Auto) 1.5 (1.0-6.0) % Baso % (Auto) 0.6 (0.0-1.0) % Lymph # (Auto) 2.24 (1.10-4.50) K/mm3 [place] # (Auto) 0.65 (0.10-0.90) K/mm3 Eos # (Auto) 0.12 (0.02-0.50) K/mm3 Baso # (Auto) 0.05 (0.00-0.10) K/mm3 Abs Immat Gran (auto) 0.02 H (0.00-0.00) K/mm3 Absolute Neuts (auto) 5.02 (1.70-7.20) K/mm3 Absolute Nucleated RBC 0.00 (0.00-0.00) K/mm3 Nucleated RBC % 0.0 (0-0.0) % Sodium 138 (137-145) mmol/L Potassium 3.3 L (3.4-5.0) mmol/L Chloride 104 (98-107) mmol/L Carbon Dioxide 27 (22-30) mmol/L Anion Gap 7 (4-12) mmol/L BUN 10 (7-17) mg/dL Creatinine 1.00 (0.7-1.0) mg/dL Estim Creat Clear Calc 70 ml/min Estimated GFR 59 (59 - ) Glucose 159 H (65-110) mg/dL Calculated Osmolality 288 (285-295) mOsm/kg Calcium 8.3 L (8.4-10.2) mg/dL Total Bilirubin 0.3 (0.2-1.3) mg/dL AST 22 (14-36) U/L ALT 15 (6-35) U/L Alkaline Phosphatase 66 (38-126) U/L Total Protein 5.9 L (6.3-8.2) g/dL Albumin 3.5 (3.5-5.1) g/dL Imaging Data Attestation: I personally reviewed and interpreted this imaging study as follows: Radiologist's impression: chest x-rays negative for acute process ECG Data EKG #1: Attestation: I personally reviewed and interpreted this ECG as follows: ECG completion date: 01/28/25 ECG completion time: 22:24 normal rate, sinus rhythm, no ectopy, non-specific ST changes, normal QRS, normal QT and NL axis Discharge Plan Discharge Clinical Impression: Allergic to insect stings Anaphylaxis Qualifiers: Encounter type: initial encounter Qualified Code(s): T78.2XXA - Anaphylactic shock, unspecified, initial encounter Patient Disposition: Home Condition: Stable Instructions: Anaphylaxis (ED), General Allergic Reaction (ED) Patient Language: Niuean Prescriptions: New methylprednisolone [Medrol (Sharath)] 4 mg tablets,dose pack See Rx Instructions .ROUTE .COMPLEX Qty: 21 0RF Rx Instructions: orally per package directions epinephrine [EpiPen 2-Sharath] 0.3 mg/0.3 mL auto-injector 0.3 mg IM ONCE PRN (Reason: anaphylaxis) Qty: 2 0RF Rx Instructions: as a single dose; may repeat once No Action ondansetron 4 mg tablet,disintegrating 4 mg PO Q6H PRN (Reason: nausea and vomiting) Qty: 20 0RF methocarbamol 500 mg tablet 1,000 mg PO Q6H PRN (Reason: muscle pain) Qty: 40 0RF omeprazole 40 mg capsule,delayed release(DR/EC) 40 mg PO DAILY losartan-hydrochlorothiazide 100-12.5 mg tablet 1 tablet PO DAILY Follow-up/Referrals: UNKNOWN,DOCTOR [Non-Staff] - Time of Disposition: 22:18
--- NOTE | 2025-01-28 20:41 | ECG_ITS ---
Test Date: 2025-01-28 21:10:42 Measurements Intervals Brandon Rate: 83 P: 62 VA: 170 QRS: 47 QRSD: 104 T: 42 QT: 409 QTc: 483 Interpretive Statements SINUS RHYTHM LOW QRS VOLTAGE IN PRECORDIAL LEADS BORDERLINE ST ABNORMALITY- ANTEROLAT/INF LEADS BASELINE ARTIFACT- V1-V2, V5 BORDERLINE ECG No previous ECG available for comparison Electronically Signed On 01-29-2025 06:18:26 CDT by Feng Dean D.O.
[2025-01-28] MEDS: FAMOTIDINE 20 MG/2 ML VIAL 40 MG IV PUSH (20:49)
[2025-01-28 21:03] LABS: Hematocrit 35.7 % (35.0-49.0); Hemoglobin 12.0 g/dL (12.0-15.0); Immature Granulocyte Percent A 0.2 % (0.0-0.0); Lymphocytes Absolute Auto 2.24 K/mm3 (1.10-4.50); Mean Corpuscular HGB Conc 33.6 g/dL (32-36); Mean Corpuscular Hemoglobin 29.9 pg (27.0-31.0); Mean Corpuscular Volume 88.8 fL (78.0-102.0); Nucleated Red Blood Cells Absolute Auto 0.00 K/mm3 (0.00-0.00); Nucleated Red Blood Cells Perc 0.0 % (0-0.0); Platelet Count Result 303 K/mm3 (150-420); Red Blood Count 4.02 M/mm3 (4.20-5.40); White Blood Count 8.1 K/mm3 (4.8-10.8)
--- NOTE | 2025-01-28 21:10 | PC.NURSE ---
Pt resting in room w/ spouse at side. She reports feeling better w/ all the medications, still has some slight c/o Rt sided throat swollen but much less. Continuing to monitor, VSS. Awaiting lab and test results.
[2025-01-28 21:17] LABS: Alanine Aminotransferase 15 U/L (6-35); Albumin Level 3.5 g/dL (3.5-5.1); Alkaline Phosphatase 66 U/L (38-126); Anion Gap 7 mmol/L (4-12); Aspartate Amino Transferase 22 U/L (14-36); Bilirubin,Total 0.3 mg/dL (0.2-1.3); Blood Urea Nitrogen 10 mg/dL (7-17); Calcium 8.3 mg/dL (8.4-10.2); Carbon Dioxide 27 mmol/L (22-30); Chloride 104 mmol/L (98-107); Estimated CRCL calculation 70 ml/min; Estimated Glomerular Filt Rate 59; Glucose 159 mg/dL (65-110); Osmolality Calculated 288 mOsm/kg (285-295); Potassium 3.3 mmol/L (3.4-5.0); Sodium 138 mmol/L (137-145); Total Protein 5.9 g/dL (6.3-8.2)
--- OUTSIDE RECORDS SUMMARY | 2025-01-28 21:28 | XMS_ITS | Clinical Summary ---
Author Organization [facility] Address [address] [place] [address] Care Team Providers Care Photocomposition Keyboard Operator Name Role Phone Pj Wharton MD Primary [...] on file Legal Sex Female 2:37 PM SIGHT EFFECTS SPECIALIST Gender Identity Female 07/19/2022 1:41 PM SIGHT EFFECTS SPECIALIST Sexual Orientation Straight 07/19/2022 1: 41 PM SIGHT EFFECTS SPECIALIST Obstetrics History Last Filed Vital Signs Vital Sign Reading Time Taken Comments Blood Pressure 141/87 07/28/2022 9:25 AM SIGHT EFFECTS SPECIALIST Pulse 85 07/28/2022 9:25 AM SIGHT EFFECTS SPECIALIST Temperature - - Respiratory Rate - - Oxygen Saturation 100% 07/28/2022 9:25 AM SIGHT EFFECTS SPECIALIST Inhaled Oxygen Concentration - - Weight - [...] patient's age to complete this topic Insurance [facility] CHOICE PLUS [address] Care Teams Photocomposition Keyboard Operator Relationship Specialty Start Date End Date Pj Wharton MD [address] [place] [address] PCP - General Family Medicine 07/16/22
--- OUTSIDE RECORDS SUMMARY | 2025-01-28 21:28 | XMS_ITS | Clinical Summary ---
Author Organization [facility] Address [address] [place] [address] Phone Care Team Providers Care Staff Midwife/Apprenticeship Director Name Role Phone Pj Wharton MD Primary Care Provider Ailyn Chambers APRN, BACTERIOLOGIST PHARMACEUTICAL Unavailable [phone] Allergies No known active allergies Medications Multiple Vitamin (MULTIVITAMIN PO) Take by mouth. Active omeprazole (PriLOSEC) 40 MG CAPSULE DELAYED RELEASE Take 40 mg by mouth daily. Active fluticasone (FLONASE) 50 MCG/ACT Suspension 1 [place] by Nasal route daily. Use in each nostril as directed. Active losartan-hydroc hlorothiazide (HYZAAR) 100-12.5 MG Tablet Take 1 Tablet by mouth daily. Active Turmeric (QC TUMERIC COMPLEX PO) Take by mouth. Active Thida-3 Fatty Acids (FISH OIL PO) Take by [...] Type Department Care Team Description 01/08/2025 Refill [facility] [address] [place] [address] Ailyn Chambers APRN, BACTERIOLOGIST PHARMACEUTICAL Medication Refill 11/20/2024 10:00 AM CDT Office Visit [facility] [address] [place] [address] Ailyn Chambers APRN, BACTERIOLOGIST PHARMACEUTICAL Chronic post-traumatic headache, not intractable (Primary Dx); [...] Comments Blood Pressure 138/90 08/15/2024 3:37 PM MOLDING MANAGER Pulse 76 08/15/2024 3:37 PM MOLDING MANAGER Temperature 36.6 C (97.8 F) 08/15/2024 3:37 PM MOLDING MANAGER Respiratory Rate 17 11/20/2024 9:58 AM CDT Oxygen Saturation 100% 08/15/2024 3:37 PM MOLDING MANAGER Inhaled Oxygen Concentration - - Weight 89.4 kg (197 lb) 11/20/2024 9:58 AM CDT Height 170.2 cm (5' 7) 11/20/2024 9:58 AM CDT Body Mass Index 30.85 11/20/2024 9:58 AM CDT Plan of Treatment Upcoming Encounters Date Type Department Care Team (Late st Contact Info) Description 03/01/2025 4:00 PM CDT Office Visit [facility] - [facility] [address] [place] [address] Ailyn Chambers, STRETCHER OPERATOR, BACTERIOLOGIST PHARMACEUTICAL [address] [place] [address] Health Maintenance Due Date Last Done Comments [...] to complete this topic Insurance [facility] Care Teams Staff Midwife/Apprenticeship Director Relationship Specialty Start Date End Date Pj Wharton MD [address] [place] [address] PCP - General Pediatrics 11/25/23 Ailyn Chambers, STRETCHER OPERATOR, BACTERIOLOGIST PHARMACEUTICAL [address] [place] [address] Nurse Practitioner Advanced Practice Nurse 02/01/24
--- OUTSIDE RECORDS SUMMARY | 2025-01-28 21:28 | XMS_ITS | Clinical Summary ---
Author Organization [facility] Address [facility] [place] [address] Care Team Providers Care Shipper/Receiver Name Role Phone Unavailable Primary Care Provider [...]
--- OUTSIDE RECORDS SUMMARY | 2025-01-28 21:28 | XMS_ITS | Clinical Summary ---
Author Organization [facility] [employer] Address [address] [place] [address] Care Team Providers Care Cnc Machine Programmer Name Role Phone Unavailable Primary Care Provider Unavailabl e Source Comments [facility] [employer],non-owned Affiliates and Associated Physician Practices is amultiple site organization consisting of ambulatory clinics and hospital sitesin [place], [place], [place] and [place]. This disclosure is being madepursuant to the Care Everywhere program and may not contain all information available regarding this patient. Last updated 18.[facility] [employer] Allergies No known active allergies Medications * [...] Sex Assigned at Female 06/22/2024 6:08 PM CAUSTIC ROOM ATTENDANT Legal Sex Female 5:34 AM CAUSTIC ROOM ATTENDANT Gender Identity Female 06/22/2024 6:08 PM CAUSTIC ROOM ATTENDANT Sexual Orientation Straight 06/22/2024 6: 08 PM CAUSTIC ROOM ATTENDANT Last Filed Vital Signs Vital Sign Reading [...] patient's age to complete [place] [id number]
[2025-01-28] MEDS: POTASSIUM CHLORIDE 20 MEQ ER TABLET PO (23:23)
== END 2025-01-28 23:36 | disposition home or self-care (01) ==
PROVIDERS: Emergency Provider Emergency Medicine; PCP Family Medicine
DX: T78.2XXA Anaphylactic shock, unspecified, initial encounter (principal); T63.441A Toxic effect of venom of bees, accidental (unintentional), initial encounter
CPT/HCPCS: 36415; 71045; 80053; 85025; 93005; 96361; 96372; 96374; 96375; 99284; A9270; J0166; J1200; J2919; J7030

== ENCOUNTER 2025-03-12 15:39 | Outpatient (CLI) | payer OTHER, SELFPAY ==
--- NOTE | ~2025-03-12 | MM_ITS ---
EXAMINATION: MM screening [facility] BI w tino HISTORY: Screening TECHNIQUE: Craniocaudal and mediolateral oblique 3-D tomosynthesis images were obtained and synthetic 2-D images were generated. CAD analysis was submitted and interpreted. COMPARISON: Comparison to multiple prior studies sequentially, with oldest reviewed study dated 07/24/2019. BREAST PARENCHYMAL COMPOSITION: Not dense: There are scattered areas of fibroglandular density. FINDINGS: There is no evidence of suspicious mass, calcification, or architectural distortion to suggest malignancy in either breast. There has been no suspicious interval change. IMPRESSION: 1. No mammographic evidence of malignancy. 2. Recommend routine screening mammography in one year. BI-RADS Category 1: Negative Reviewed, dictated and finalized at location B.
== END 2025-03-12 15:40 | disposition home or self-care (01) ==
LOC: MICIMG 15:42
PROVIDERS: Visit Provider Nurse Practitioner
DX: Z12.31 Encounter for screening mammogram for malignant neoplasm of breast (principal)
CPT/HCPCS: 77063; 77067